=== PATIENT | female | born 1960 | race Caucasian/White ===

== ENCOUNTER 2016-07-23 15:08 | Observation (INO) | payer OTHER ==
--- NOTE | ~2016-07-23 | CR72 ---
[facility] A Service of [facility] RADIOLOGY TEXT RESULTS PATIENT: DAYNA TAN LOCATION: [facility] 561-01 : 56 UNIT #: [id number] AGE: [address]: Alex Johnson MD SEX: F ORDER DR: [id number] [facility] [address] [place], [place] [address] [id number] I MR#: [id number] #: [id number] NAME: DAYNA TAN : 1960 SEX: F STUDY DATE/TIME: 07/23/2016 15:14 UNIT: [facility] ROOM: [facility] STUDY DESCRIPTION: CR Chest Single View Portable Attending Physician: Alex Johnson M.D. Ordering Physician: Noe Ferrari M.D. Primary Care Physician: Harry Jones M.D. MEDICAL IMAGING REPORT This report is preliminary unless electronic signature is present EXAM Portable chest HISTORY Chest pain, congestion and shortness of air for 2 months. FINDINGS The cardiac size and pulmonary vascularity are within normal limits. No infiltrates or effusions. Mildly tortuous descending thoracic aorta. IMPRESSION No acute findings and no active disease. Dictated by... Patrice Duff M.D. THIS IS AN ELECTRONICALLY VERIFIED REPORT Patrice Duff M.D. at 07/24/2016 3:06 PM DFL/bernadette TD: 07/24/2016 14:43 JOB #: [id number] MEDICAL IMAGING REPORT COPY
--- NOTE | ~2016-07-23 | TH ---
Unit #: [id number] #: [id number] Patient: DAYNA TAN [id number] [address] [address] [id number] I MR#: [id number] NAME: DAYNA TAN : 1960 SEX: F STUDY DATE/TIME: 07/24/2016 UNIT: C5B ROOM: 561 STUDY DESCRIPTION: Stress nuclear study Attending Physician: Alex Johnson M.D. Primary Care Physician: Harry Jones M.D. CARDIOLOGY REPORT Result text under stress test order. Please see this order for result text. Dictated by... Diann Bennett/ts TD: 07/26/2016 10:31 JOB #: [id number] CARDIOLOGY REPORT Page 1 of 1 X Alex Johnson MD CARDIOLOGY REPORT
--- NOTE | ~2016-07-23 | EKG ---
PATIENT: DAYNA TAN UNIT #: [id number] Ventricular Rate: 114 BPM Atrial Rate: 114 BPM P-R Interval: 132 ms QRS Duration: 114 ms Q-T Interval: 362 ms QTC Calculation(Bezet): 498 ms P [place]: 54 degrees Calculated R [place]: 8 degrees Calculated T [place]: -42 degrees Diagnosis Line: Sinus tachycardia with occasional Premature Diagnosis Line: ventricular complexes Diagnosis Line: Left atrial enlargement Diagnosis Line: Inferior infarct , age undetermined Diagnosis Line: ST and T wave abnormality, consider lateral ischemia Diagnosis Line: Abnormal ECG Diagnosis Line: Diagnosis Line: Confirmed by GREGG HOLMAN MD ([id number]) on 07/25/2016 Diagnosis Line: 7:28:59 AM INTERPRETING MD: RIVER VELÁSQUEZ
--- NOTE | ~2016-07-23 | ST ---
Unit #: [id number] #: [id number] Patient: DAYNA TAN [id number] [facility] [address] [place], [place] [address] [id number] I MR#: [id number] NAME: DAYNA TAN : 1960 SEX: F STUDY DATE/TIME: 07/24/2016 UNIT: C5B ROOM: 561 STUDY DESCRIPTION: Stress ECG and nuclear study Attending Physician: Alex Johnson M.D. Primary Care Physician: Harry Jones M.D. CARDIOLOGY REPORT EXAM Combined stress ECG and nuclear study. INDICATION Chest pain. SUMMARY The patient exercised on a modified Jamey protocol to maximal effort. Resting heart rate was fast at 120 BPM, blood pressure 144/80. At rest there was 1.[address] depression in lead AVF, V5 and V6. There is deep T wave inversion in leads 3. With stress there were single PVCs, and additional [address] depression in the leads, which were abnormal at rest. T wave inversion in lead 3 was slightly deeper. An additional [address] depression in the lead, which were abnormal at rest. T wave inversion in lead 3 was slightly deeper. These changes persisted for greater than 4 minutes post exercise. The patient's peak heart rate was 226 BPM (138%). Peak blood pressure was 172/88, resting 144/80. The heart rates of 220 were probably miscounted electrically. The peak heart rate is seen on the ECG is approximately 175 BPM. Also, the protocol had to be modified, because grade 2 could not be maintained. Technetium 99 Cardiolite 11.98 and 35.3 mCi was injected at rest and stress respectively. Appropriate views were obtained. FINDINGS This study is adequate. There is no significant patient motion noted at rest or stress. There is no significant lung uptake, LV or RV enlargement. Summed stress score is 4, summed difference score is 4. Gated perfusion wall motion analysis is not available. Perfusion images demonstrate chest wall attenuation artifact, diaphragmatic artifact, but otherwise normal perfusion throughout the myocardium both at rest and stress. There is no significant change between rest and stress. IMPRESSION 1. Myocardial perfusion scan shows no ischemia or infarction. 2. LV size appears normal. 3. Severe deconditioning is noted. 4. Resting tachycardia. It was noted after the study that the TSH was low in consideration of the high resting heart rate, T3 and T4 will be obtained, and endocrine consult obtained before patient is discharge. Unit #: [id number] #: [id number] Patient: DAYNA TAN Dictated by... Alex Johnson M.D. PJKg/ts TD: 07/26/2016 09:50 JOB #: [id number] CARDIOLOGY REPORT Page 1 of 1 X Alex Johnson MD CARDIOLOGY REPORT
--- NOTE | ~2016-07-23 | CO ---
Unit #: [id number] #: [id number] Patient: DAYNA TAN [id number] [address] [place], [place] [address] [id number] I MR#: [id number] NAME: DAYNA TAN ROOM: [facility] Age: 55 Sex: F Admission Date: 07/23/2016 : 1960 Attending Physician: Alex Johnson M.D. Primary Care Physician: Harry Jones M.D. CONSULTATION REPORT REASON FOR CONSULTATION Possible sleep apnea. CHIEF COMPLAINT Chest pain. 55-year-old female with no past medical history, presents with a complaint of chest pain and has been admitted for acute coronary syndrome, workup. I am seeing the patient at the bedside. She has a past medical history of hypertension also and complaining of daytime fatigue, sleepiness and likely some snoring according to the family member. REVIEW OF SYSTEMS Positive pallor. No edema, no cyanosis, no jaundice. The rest as per History of Present Illness. The rest of the twelve point review of systems has been reviewed and is negative. PAST MEDICAL HISTORY 1. Hypertension. 2. . 3. Vaginal surgery. HOME MEDICATIONS Unknown. ALLERGIES Lisinopril. SOCIAL HISTORY Nonsmoker. No alcohol, no drug abuse. FAMILY HISTORY Positive for hypertension. PHYSICAL EXAMINATION VITAL SIGNS: Temperature 98, pulse 87, respirations 12, blood pressure 110/70. NEUROLOGICAL: Awake, alert, oriented. No neuro deficit. HEENT: PERRLA. NECK: Supple. No JVD. CHEST: Bilateral air entry, bilateral mild rhonchi. GI: Nontender, soft. Bowel sounds positive. EXTREMITIES: No edema. SKIN: No rashes, no ulcers. Unit #: [id number] #: [id number] Patient: DAYNA TAN LYMPHATIC: No lymphadenopathy. DIAGNOSTIC STUDIES Labs and imaging have been reviewed. ASSESSMENT AND PLAN Daytime fatigue, sleepiness and uncontrolled hypertension: Concern for obstructive sleep apnea. Overnight oximetry reviewed, is nonsignificant. Patient will need outpatient polysomnography overnight. Will follow in the office. Continue cardiac regimen. Cardiac workup is in progress. We will continue to follow. Thank you very much for this consultation. Dictated by... SaDiann Oconnor TD: 07/24/2016 14:31 JOB #: [id number] CONSULTATION REPORT X Rachel Cabrera MD CONSULTATION REPORT
--- NOTE | ~2016-07-23 | HP ---
Unit #: [id number] #: [id number] Patient: DAYNA TAN [id number] [facility] [address] [facility] [address]. [place], [place] [address] [id number] I MR#: [id number] NAME: DAYNA TAN ROOM: 14292 Age: 55 Sex: F Admission Date: 07/23/2016 : 1960 Attending Physician: Alex Johnson M.D. Primary Care Physician: Harry Jones M.D. HISTORY AND PHYSICAL CHIEF COMPLAINT Chest pain. HISTORY OF PRESENT ILLNESS Eula Ramírez is a pleasant 55-year-old Moroccan patient of Dr. Jones who has been living in the [facility] for 10 years. I was able to converse with her in Icelandic. She has had chest pain on and off that occasionally occurs when she walks, occasionally when she goes out into the cold, occasionally when she is just sitting. It does not radiate. It is not associated with dyspnea, but it is relieved by rest. It is not associated with diaphoresis. Upon presentation to [facility] emergency room her ECG showed [address] depression in the lateral leads and deep T-wave inversion in leads III and aVF. PAST SURGICAL HISTORY 1. . 2. Vaginal surgery. HOME MEDICATIONS Unknown, noncompliant. ALLERGIES Lisinopril. SOCIAL HISTORY Does not take tobacco. Moved from [place] 10 years ago. Does not speak Urdu. FAMILY HISTORY Negative for premature atherosclerotic disease. REVIEW OF SYSTEMS As per history of present illness. Otherwise, as stated below. GENERAL: No recent fever or chills. No recent weight change. ENDOCRINE: Negative for thyroid disease. HEENT: No auditory or visual disturbances. GASTROINTESTINAL: No melena, no hematochezia. RESPIRATORY: No wheezing or significant dyspnea. CARDIOVASCULAR: Vide supra. GENITOURINARY: No dysuria. No back pain suggestive of nephrolithiasis. NEUROLOGIC: No seizure disorder, recent CVA, or TIA. PSYCHOLOGICAL: No depression. PHYSICAL EXAMINATION Unit #: [id number] #: [id number] Patient: DAYNA TAN GENERAL: Pleasant, alert, in no acute distress. VITAL SIGNS: Heart rate 114 and regular, respiratory rate 16, blood pressure 154/74, oxygen saturation on room air 100%. SKIN: Warm and dry. No xanthelasma. MUSCULOSKELETAL: No missing digits. Moves easily for evaluation. NEUROLOGICAL: Appropriate mood and affect. Alert and oriented x3. HEENT: Pupils equal, round and reactive. No oral cyanosis. No icterus. NECK: Carotids clear to auscultation with no carotid bruits. Normal carotid upstroke bilaterally. Thyroid is normal in size and texture without masses or tenderness. CHEST: Clear to auscultation with no rales or wheezes. Good effort. CARDIAC: Normal point of maximum impulse. Normal S1 and S2. No S3, S4 or rub. Grade 1/6 aortic outflow murmur heard best in the right upper sternal border. ABDOMEN: No hepatosplenomegaly, masses or tenderness. Normal bowel sounds. No abdominal bruits heard. EXTREMITIES: No clubbing, cyanosis or edema. Excellent posterior tibial and dorsalis pedis pulses. DIAGNOSTIC STUDIES LABORATORY: Creatinine 0.7, potassium 3.8. Hemoglobin 12.6, white blood cell count 8.0, platelet count 211,000. Urinalysis pending. IMPRESSION 1. Chest pain with moderate risk for CAD, based on age, and hypertension. 2. Hypertension. 3. Abnormal ECG with T-wave inversion. 4. Likely sleep apnea; she states she awakens to breathe. PLAN 1. Stress nuclear and echo. 2. Follow troponins. 3. Overnight oximetry. 4. TSH, hemoglobin A1c and lipids, check urinalysis. Dictated by Diann Bennett/sparkle TD: 07/23/2016 18:44 JOB #: [id number] HISTORY AND PHYSICAL X Alex Johnson MD X HISTORY AND PHYSICAL
--- NOTE | ~2016-07-23 | DS ---
Unit #: [id number] #: [id number] Patient: DAYNA TAN [id number] [address] [address] [id number] I MR#: [id number] NAME: DAYNA TAN ROOM: [facility] Age: 55 Sex: F Admission Date: 07/23/2016 : 1960 Discharge Date: 07/24/2016 Attending Physician: Alex Johnson M.D. Primary Care Physician: Harry Jones M.D. DISCHARGE SUMMARY HOSPITAL COURSE This 55-year-old patient has been in the [facility] for about 10 years, came with occasional episodes of chest pain and dyspnea. EKG shows some minor ST-T changes. She has a history of hyperlipidemia. No diabetes. PHYSICAL EXAMINATION At that time of admission, VITAL SIGNS: Stable. HEART: S1 and S2 normal. LUNGS: Clear. ABDOMEN: Soft. EXTREMITIES: No edema. DIAGNOSTIC STUDIES IMAGING STUDIES: The patient underwent a stress Cardiolite study. Finally, Cardiolite studies normal. She was seen by Dr. Nevarez for uncontrolled hyperlipidemia and hyperthyroidism. DISCHARGE MEDICATIONS She will be discharged on the following medications; methimazole 10 mg b.i.d., metoprolol tartrate 25 mg b.i.d., Tricor 145 mg daily, Lipitor 20 mg q.h.s. DIET Healthy-heart diet. ACTIVITY As tolerated. FOLLOWUP Follow up with Dr. Johnson in 4 weeks. Follow up with Dr. Nevarez as scheduled. Discharge process took more than 30 minutes. Dictated by... Diann Blakely/saqib TD: 07/25/2016 02:04 Unit #: [id number] #: [id number] Patient: DAYNA TAN JOB #: [id number] DISCHARGE SUMMARY Page 1 of 1 X Katrin Collins MD X DISCHARGE SUMMARY
--- NOTE | ~2016-07-23 | CO ---
Unit #: [id number] #: [id number] Patient: DAYNA TAN [id number] [address] [place], [place] [address] [id number] I MR#: [id number] NAME: DAYNA TAN ROOM: [facility] Age: 55 Sex: F Admission Date: 07/23/2016 : 1960 Attending Physician: Alex Johnson M.D. Primary Care Physician: Harry Jones M.D. Consultation Date: 07/24/2016 CONSULTATION REPORT REASON FOR CONSULTATION Abnormal thyroid function test. HISTORY OF PRESENT ILLNESS She is a 55-year-old female, who has presented to the emergency room for not feeling well with complaining of some chest pressure. She declines any vomiting or diarrhea, but she does report to have weight lost about 4 to 5 pounds over the last few weeks. Does report to have some palpitations and some tremors. The patient does not speak Tajik. Her daughter is at the bedside, who speaks Tajik. She interpreted for me. On her labs, her TSH 0.02, free T4 is 1.39, free T3 is 5.3. I have been asked to see the patient for further management. REVIEW OF SYSTEMS A 10-point review of system was completed. Please see HPI. CURRENT MEDICATIONS List is reviewed. The patient is on metoprolol 25 mg b.i.d. Other medications include Zoloft an Norvasc. PAST SURGICAL HISTORY . ALLERGIES Lisinopril. SOCIAL HISTORY Declines tobacco or alcohol. PHYSICAL EXAMINATION GENERAL: She is comfortable, in no acute distress. VITAL SIGNS: Temperature 98.3, pulse is 111, respirations 19, blood pressure is 146/75. HEENT: EOMI. Pupils equally reactive to light. NECK: Supple. No thyromegaly noted. CHEST: Good air entry. CVS: Regular rhythm. No murmurs. ABDOMEN: Soft and nontender. Bowel sounds positive. EXTREMITIES: No edema. ASSESSMENT Thyrotoxicosis. The patient is symptomatic. PLAN Unit #: [id number] #: [id number] Patient: DAYNA TAN We will continue beta-blockers. The patient will need thyroid uptake and scan as an outpatient. Restart methimazole 10 mg b.i.d. Follow with primary care physician. Discussed the adverse effects of the medicine with the patient as translated or interpreted by her daughter. Dictated by... Diann Hernandez/saqib TD: 07/24/2016 16:00 JOB #: [id number] CONSULTATION REPORT X Tati Nevarez MD X CONSULTATION REPORT
--- NOTE | ~2016-07-23 | EKG ---
PATIENT: DAYNA TAN UNIT #: [id number] Ventricular Rate: 91 BPM Atrial Rate: 91 BPM P-R Interval: 132 ms QRS Duration: 124 ms Q-T Interval: 396 ms QTC Calculation(Bezet): 487 ms P [place]: 62 degrees Calculated T [place]: -23 degrees Diagnosis Line: Normal sinus rhythm Diagnosis Line: Left ventricular hypertrophy with QRS widening Diagnosis Line: Inferior infarct (cited on or before 23-JUL-2016) Diagnosis Line: Abnormal ECG Diagnosis Line: When compared with ECG of 23-JUL-2016 14:09, Diagnosis Line: (unconfirmed) Diagnosis Line: Premature ventricular complexes are no longer Diagnosis Line: Present Diagnosis Line: Nonspecific T wave abnormality has replaced Diagnosis Line: inverted T waves in Lateral leads Diagnosis Line: Confirmed by CHARLEY SERVIN MD ([id number]) on Diagnosis Line: 07/25/2016 8:01:50 AM INTERPRETING MD: MALATHI VELÁSQUEZ
[~2016-07-23 15:08] MED LIST: BIRTH CONTROL PILL; FLEXERIL10 M1 PO; FLEXERIL10 MG PO; MEDROL4 MG/DOSE- PO; ORUDIS75 M1 PO; PROVERA PO; TESSALON200 MG PO; VOLTAREN75 MG PO
[2016-07-23 15:32] LABS: POC - CKMB <1.0 ng/mL (0.0-7.9); POC - TROPONIN <0.05 ng/mL (<=0.05)
[2016-07-23 15:38] LABS: BASOPHIL# 0.1 X10e3 (0-0.3); BASOPHIL% 0.6 % (0-2.5); EOSINOPHIL# 0.1 X10e3 (0-0.7); EOSINOPHIL% 1.5 % (0.0-7.0); HEMATOCRIT 39.4 % (35.0-45.0); HEMOGLOBIN 12.6 gm/dL (12.0-16.0); LYMPHOCYTE# 2.5 X10e3 (1.0-3.5); LYMPHOCYTE% 30.8 % (17.0-45.0); MEAN CELL VOLUME 84.4 FL (83-96); MEAN PLATELET VOLUME 9.4 FL (6.5-11.5); MONOCYTE# 0.6 X10e3 (0-1.0); MONOCYTE% 7.8 % (3.0-12.0); NEUTROPHIL# 4.7 X10e3 (1.5-7.1); NEUTROPHIL% 59.3 % (40-75); PLATELET COUNT 211 X10e3 (140-420); RED BLOOD COUNT 4.67 X10e (3.90-5.30); RED CELL DISTRIBUTION WIDTH 13.3 % (11.0-15.5)
[2016-07-23 15:46] LABS: DIFF IND NO
[2016-07-23 16:08] LABS: ALBUMIN SERUM 3.8 g/dL (3.5-5.0); ALKALINE PHOSPHATASE 55 U/L (32-92); ALT (SGPT) 13 U/L (10-40); AST (SGOT) 15 U/L (10-42); BILIRUBIN, DIRECT 0.1 mg/dL (0.0-0.2); BILIRUBIN,INDIRECT 0.3 mg/dL (0.0-0.9); BILIRUBIN,TOTAL 0.4 mg/dL (0.2-2.0); BLOOD UREA NITROGEN 16 mg/dL (9-23); BUN/CREATININE RATIO 22.85; CARBON DIOXIDE 26 mmol/L (22-31); CHLORIDE 107 mmol/L (100-111); CREATININE SERUM 0.7 mg/dL (0.6-1.4); GLOM FILT RATE Estimated ABOVE60 mL/min (>60); GLUCOSE FASTING 134 mg/dL (70-110); POTASSIUM 3.8 mmol/L (3.5-5.1); PROTEIN TOTAL SERUM 6.5 g/dL (6.0-8.3); SODIUM 140 mmol/L (135-145)
[2016-07-23 17:03] LABS: CHOLESTEROL 258 mg/dL (0-200); HDL CHOLESTEROL 24 mg/dL (35-95)
[2016-07-23 17:04] LABS: TRIGLYCERIDES 815 mg/dL (10-160)
[2016-07-23] MEDS ORDERED: NORVASC10 MG PO (17:33)
[2016-07-23] MEDS ORDERED: ZOLOFT50 MG PO (17:33)
[2016-07-23] MEDS ORDERED: DESYREL50 MG PO (17:33)
[2016-07-23 17:53] LABS: POC - CKMB <1.0 ng/mL (0.0-7.9); POC - TROPONIN <0.05 ng/mL (<=0.05)
[2016-07-23 18:23] LABS: URINE APPEARANCE CLEAR; URINE BILIRUBIN NEG (NEG); URINE BLOOD NEG (NEG); URINE COLOR YELLOW; URINE GLUCOSE NEG (NEG); URINE KETONE NEG (NEG); URINE LEUKOCYTE ESTERASE NEG (NEG); URINE NITRATE NEG (NEG); URINE PROTEIN NEG (NEG); URINE SPECIFIC GRAVITY 1.007 (1.003-1.035); URINE UROBILINOGEN 0.2 MG/DL (NEG)
[2016-07-24 12:42] LABS: FREE T3 5.3 pg/mL (2.5-3.9)
[2016-07-24 12:44] LABS: FREE THYROXIN (T4) 1.39 ng/dL (0.58-1.64)
[2016-07-24] MEDS ORDERED: TRICOR145 MG PO (17:06)
[2016-07-24] MEDS ORDERED: METOPROLOL TAR25 MG PO (17:06)
[2016-07-24] MEDS ORDERED: TAPAZOLE10 MG PO (17:06)
[2016-07-24] MEDS ORDERED: LIPITOR20 MG PO (17:07)
[2016-07-24] MEDS ORDERED: ASPIRIN EC81 M1 PO (17:09)
== END 2016-07-24 19:54 | disposition home or self-care (01) ==
LOC: CED 15:08 → CEDOF 16:00 → C5B 07-24 09:55
PROVIDERS: Emergency Medicine; Nurse Practitioner Family
DX: R07.89 Other chest pain (principal); I10 Essential (primary) hypertension; R94.31 Abnormal electrocardiogram [ECG] [EKG]; E05.90 Thyrotoxicosis, unspecified without thyrotoxic crisis or storm; G47.8 Other sleep disorders; Z23 Encounter for immunization; Z82.49 Family history of ischemic heart disease and other diseases of the circulatory system
CPT/HCPCS: 36415; 71010; 78452; 80048; 80061; 80076; 81003; 82553; 83036; 83690; 84439; 84443; 84481; 84484; 85025; 85379; 90688; 93005; 93017; 93306; 99285; A9500; G0008; G0378

== ENCOUNTER 2016-08-04 18:34 | Emergency (ER) | payer OTHER ==
--- NOTE | ~2016-08-04 | EKG ---
PATIENT: DAYNA TAN UNIT #: [id number] Ventricular Rate: 82 BPM Atrial Rate: 82 BPM P-R Interval: 142 ms QRS Duration: 126 ms Q-T Interval: 402 ms QTC Calculation(Bezet): 469 ms P [place]: 58 degrees Calculated R [place]: 1 degrees Calculated T [place]: -40 degrees Diagnosis Line: Sinus rhythm with occasional Premature ventricular Diagnosis Line: complexes Diagnosis Line: Left ventricular hypertrophy with QRS widening Diagnosis Line: Cannot rule out Inferior infarct , age Diagnosis Line: undetermined Diagnosis Line: T wave abnormality, consider lateral ischemia Diagnosis Line: Abnormal ECG Diagnosis Line: Diagnosis Line: Confirmed by GREGG HOLMAN MD ([id number]) on 08/05/2016 Diagnosis Line: 4:37:15 PM INTERPRETING MD: RIVER VELÁSQUEZ
--- NOTE | ~2016-08-04 | CT4 ---
[facility] A Service of [facility] & [facility] RADIOLOGY TEXT RESULTS PATIENT: DAYNA TAN LOCATION: [facility] : 56 UNIT #: [id number] AGE: [address]: Fidelina Burns MD SEX: F ORDER DR: [id number] [facility] [address] [facility]. [place], [place] [address] [id number] MR#: [id number] #: [id number] NAME: DAYNA TAN : 1960 SEX: F STUDY DATE/TIME: 08/04/2016 19:16 UNIT: [facility] ROOM: STUDY DESCRIPTION: CT Abd and Pelv Wo Cont Attending Physician: Fidelina Burns M.D. Ordering Physician: Fidelina Burns M.D. Primary Care Physician: Chon Mckay M.D. MEDICAL IMAGING REPORT This report is preliminary unless electronic signature is present EXAM CT abdomen and pelvis without IV contrast. COMPARISON STUDIES None INDICATIONS A 55-year-old female with left-sided flank abdominal pain for [address] exam was performed with one or more of the following radiation dose reduction techniques: automatic exposure control, adjustment of mA and/or kV according to patient size, and iterative reconstruction. Axial CT imaging of the abdomen and pelvis was performed without IV contrast. Lack of IV contrast limits evaluation of adenopathy, vasculature and viscera. Coronal and sagittal reformats were constructed. FINDINGS No acute fractures or suspicious osseous lesions. Moderate posterior disc protrusion at L2-L3 with mild posterior disc protrusions at all other levels of the lumbar spine. No acute findings in the lower chest. Unenhanced liver, gallbladder, pancreas, spleen, adrenals and right kidney are normal. There is a simple cyst versus angiomyolipoma in the left kidney measuring up to 3.2 cm. No hydronephrosis or hydroureter. No renal or ureteral calculi. There are benign left-sided and right-sided pelvic phleboliths. Urinary bladder is unremarkable. CT appearance of the uterus is unremarkable. No adnexal masses are seen. No bowel obstruction. Appendix is normal. No free fluid or pneumoperitoneum. Normal caliber of the abdominal aorta. Scattered subcentimeter lymph nodes in the left mesentery are likely reactive. No adenopathy by CT size [facility] A Service of [facility] & [facility] RADIOLOGY TEXT RESULTS PATIENT: DAYNA TAN [id number] : [birth year] UNIT #: [id number] AGE: [address]: Fidelina Burns P SEX: F ORDER DR: criteria. IMPRESSION 1. No acute abnormality abdomen, pelvis or imaged lower chest. 2. Large 3.2 cm low density lesion in the left kidney which is benign, either representing benign cyst or an angiomyolipoma. No evidence of associated acute hemorrhage. 3. Posterior disc protrusions at all levels of the lumbar spine, most significant at L2-L3 where this is moderate. Dictated by... Saurabh Fernando M.D. THIS IS AN ELECTRONICALLY VERIFIED REPORT Saurabh Fernando M.D. at 08/08/2016 8:34 PM Arianna TD: 08/04/2016 22:18 JOB #: [id number] MEDICAL IMAGING REPORT Page 1 of 1 COPY
[~2016-08-04 18:34] MED LIST changes: +ASPIRIN EC81 M1 PO; +DESYREL50 MG PO; +LIPITOR20 MG PO; +METOPROLOL TAR25 MG PO; +NORVASC10 MG PO; +TAPAZOLE10 MG PO; +TRICOR145 MG PO; +ZOLOFT50 MG PO
[2016-08-04 18:57] LABS: BASOPHIL% 0.6 % (0-2.5); EOSINOPHIL# 0.1 X10e3 (0-0.7); EOSINOPHIL% 1.8 % (0.0-7.0); HEMATOCRIT 39.2 % (35.0-45.0); HEMOGLOBIN 13.1 gm/dL (12.0-16.0); LYMPHOCYTE# 2.8 X10e3 (1.0-3.5); LYMPHOCYTE% 37.5 % (17.0-45.0); MEAN CELL VOLUME 83.1 FL (83-96); MEAN CORPUSCULAR HEMOGLOBIN 27.8 PG (28-34); MEAN CORPUSCULAR HGB CONC 33.4 g/dL (30-36); MEAN PLATELET VOLUME 9.8 FL (6.5-11.5); MONOCYTE# 0.6 X10e3 (0-1.0); NEUTROPHIL# 3.9 X10e3 (1.5-7.1); NEUTROPHIL% 52.1 % (40-75); PLATELET COUNT 187 X10e3 (140-420); RED BLOOD COUNT 4.71 X10e (3.90-5.30); WHITE BLOOD COUNT 7.4 X10e3 (4.0-10.5)
[2016-08-04 19:02] LABS: DIFF IND NO
[2016-08-04 19:04] LABS: POC - CKMB <1.0 ng/mL (0.0-7.9); POC - TROPONIN <0.05 ng/mL (<=0.05)
[2016-08-04 19:25] LABS: ALBUMIN SERUM 4.1 g/dL (3.5-5.0); ALKALINE PHOSPHATASE 56 U/L (32-92); ALT (SGPT) 18 U/L (10-40); AMYLASE 50 U/L (0-46); AST (SGOT) 18 U/L (10-42); BILIRUBIN,TOTAL 0.2 mg/dL (0.2-2.0); BLOOD UREA NITROGEN 12 mg/dL (9-23); CALCIUM SERUM 9.4 mg/dL (8.4-10.2); CARBON DIOXIDE 28 mmol/L (22-31); CHLORIDE 106 mmol/L (100-111); CREATININE SERUM 0.6 mg/dL (0.6-1.4); GLOM FILT RATE Estimated 101.2 mL/min (>60); GLUCOSE FASTING 148 mg/dL (70-110); LIPASE 25 U/L (22-51); PROTEIN TOTAL SERUM 7.2 g/dL (6.0-8.3); SODIUM 139 mmol/L (135-145)
[2016-08-04 19:26] LABS: BILIRUBIN, DIRECT <0.1 mg/dL (0.0-0.2); BILIRUBIN,INDIRECT 0.1 mg/dL (0.0-0.9)
[2016-08-04 20:08] LABS: URINE SOURCE CLEAN CATCH
[2016-08-04 20:15] LABS: URINE APPEARANCE CLEAR; URINE BILIRUBIN NEG (NEG); URINE BLOOD NEG (NEG); URINE COLOR YELLOW; URINE GLUCOSE NEG (NEG); URINE KETONE NEG (NEG); URINE LEUKOCYTE ESTERASE NEG (NEG); URINE NITRATE NEG (NEG); URINE PH 7.5 (5-8); URINE PROTEIN NEG (NEG); URINE SPECIFIC GRAVITY 1.004 (1.003-1.035); URINE UROBILINOGEN 0.2 MG/DL (NEG)
[2016-08-04 20:20] LABS: CULTURE INDICATED? NO
[2016-08-04 20:33] LABS: POC - CKMB <1.0 ng/mL (0.0-7.9); POC - TROPONIN <0.05 ng/mL (<=0.05)
== END 2016-08-04 21:02 | disposition home or self-care (01) ==
LOC: CED 18:34
PROVIDERS: Student in an Organized Health Care Education/Training Program
DX: R10.9 Unspecified abdominal pain (principal); E78.5 Hyperlipidemia, unspecified; I10 Essential (primary) hypertension; F17.210 Nicotine dependence, cigarettes, uncomplicated; Z79.82 Long term (current) use of aspirin; Z79.899 Other long term (current) drug therapy
CPT/HCPCS: 36415; 74176; 80048; 80076; 81003; 82150; 82550; 82553; 83690; 84484; 85025; 93005; 96361; 96374; 96375; 99284; J2270; J2405